=== PATIENT | male | born 1950 | race Caucasian/White ===

== ENCOUNTER → 2017-05-12 | Outpatient (CLI) | payer BC ==
--- NOTE | 2017-05-12 13:27 | PCVCIMAG ---
APPROVED REPORT Exam: Stress Echocardiogram Indication: Chest pain Patient Location: Echo lab Stress Nurse: April Kim RN Ht: 6 ft 0 in HR: 59 bpm BP: 132/82 mmHg Rhythm: NSR Medical History Medical History: HTN, Hyperlipidemia, Diabetes Procedure The patient underwent an Exercise Stress Test using the Alan Protocol. Blood pressure, heart rate, and EKG were monitored. An Echocardiogram was performed by configuration technician in four stages in quad fashion. At peak stress, four selected images were obtained and placed side by side with resting images for comparison. Stress Test Details Stress Test: Exercise stress testing was performed using a Alan protocol. HR Resting HR: 48 bpmMax Heart Rate (APMHR): 152 bpm Max HR Achieved: 151 bpmTarget HR (85% APMHR): 129 bpm % of APMHR: 99 Recovery HR: 90 bpm HR response to stress: Normal HR response to stress BP Resting BP: 132/82 mmHg Max BP: 152/80 mmHg Recovery BP: 134/68 mmHg ECG Resting ECG: Sinus Bradycardia Stress ECG: Sinus Rhythm Recovery ECG: Sinus Rhythm Clinical Reason for Termination: Maximal effort Stress Symptoms: Fatigue Exercise duration: 7 min 05 sec Highest Stage Achieved: Stage 3: 3.4 mph at 14% grade. Exercise capacity: 10.10 METs Overall Exercise Capacity for Age: Average Scale: Active Stress ECG Conclusion The patient exercised according to the Alan protocol for 7:05mins; achieving a work level of 10.10 METS. The resting heart rate of 48 bpm patricia to a maximal heart rate of 151 bpm. This value represents 99% of the maximal, age-predicted heart rate. The resting blood pressure of 132/82 mmHg, patricia to a maximum of 152/80 mmHg. The exercise test was stopped due to maximal effort, fatigue. Pre-Stress Echo The resting Echocardiogram showed normal left ventricular contractility with an estimated Ejection Fraction of about >55%. Normal wall motion in all segments on baseline images. Post-Stress Echo The stress Echocardiogram showed normal left ventricular contractility with an estimated Ejection Fraction of about 60-65%. Normal augmentation of wall motion in all segments on post stress images. Clinical No clinical or ECG evidence for ischemia. Conclusion Clinical Response: Non-ischemic Exercise Capacity: Average Stress ECG Response: Non-ischemic Stress Echo Images: Non-ischemic Other Information Study Quality: Good
--- NOTE | 2017-05-12 13:40 | PCVCIMAG ---
EXAM: AORTOILIAC DUPLEX INDICATION: Palpable abdominal fullness. FINDINGS: AORTA: Suprarenal aorta measures maximum diameter of 3.5 cm. There is not a fusiform infrarenal aortic aneurysm. The infrarenal aorta measures maximum diameter of 2.3 cm. No aortic stenosis. RIGHT COMMON ILIAC ARTERY: Maximum diameter is 1.3 cm. No significant stenosis. RIGHT EXTERNAL ILIAC ARTERY: No significant stenosis. LEFT COMMON ILIAC ARTERY: Maximum diameter is 1.4 cm. No significant stenosis. LEFT EXTERNAL ILIAC ARTERY: No significant stenosis. IMPRESSION: No infrarenal abdominal aortic aneurysm. No aortoiliac stenosis seen. 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 Interval follow-up is recommended. LOC:[id number]
== END | disposition home or self-care (01) ==
LOC: PCVCIMAG 09:18
PROVIDERS: ATTEND Internal Medicine Cardiovascular Disease
DX: I10 Essential (primary) hypertension (principal); E78.00 Pure hypercholesterolemia, unspecified; E11.9 Type 2 diabetes mellitus without complications; R19.09 Other intra-abdominal and pelvic swelling, mass and lump; I71.4 Abdominal aortic aneurysm, without rupture; M19.90 Unspecified osteoarthritis, unspecified site; Z82.49 Family history of ischemic heart disease and other diseases of the circulatory system; Z79.82 Long term (current) use of aspirin; Z87.891 Personal history of nicotine dependence
CPT/HCPCS: 93325; 93351; 93978